=== PATIENT | female | born 1990 | race Two or more races ===

== ENCOUNTER 2017-04-06 08:23 | Day surgery (SDC) | payer SELFPAY | END 2017-04-06 10:00 | disposition home or self-care (01) | LOC: SDC 08:25 → ACINP 08:25 | PROVIDERS: Family Provider Family Medicine; PCP Family Medicine; Visit Provider Anesthesiology | PROC: 3E0R3GC Introduction of Other Therapeutic Substance into Spinal Canal, Percutaneous Approach (ICD-10-PCS; CPT 62273; principal; 2017-04-06 08:30) | DX: O89.4 Spinal and epidural anesthesia-induced headache during the puerperium (principal) | CPT/HCPCS: 62273; J7120 ==

== ENCOUNTER 2019-02-28 17:22 | Observation (INO) | payer SELFPAY ==
[2019-02-28] VITALS (9 sets, daily range): BP systolic 111–116; BP diastolic 64–74; PULSE 61–88; RESP 15–16; TEMP 36.2–36.9; O2SAT 95–99; BMI 22.2
[2019-02-28] MEDS: Lactated Ringers 1,000 ML 100 ML IV ×2 (14:00→16:00)
[2019-02-28 14:12] LABS: Hematocrit 41.4 % (37-47); Hemoglobin 13.7 g/dL (12.0-15.0); Mean Corp Hgb Conc 33.1 g/dL (32-36); Mean Corpuscular Hgb 30.4 pg (27.0-32.0); Mean Corpuscular Volume 91.8 fL (81-99); Platelet Count 230 K/mm3 (150-450); RBC Distribution Width CV 12.7 % (11.6-14.6); Red Blood Count 4.51 M/mm3 (4.2-5.4); White Blood Count 4.5 K/mm3 (4.4-11.0)
[2019-02-28] MEDS: Bupiv/Epi 0.25% 30 ML Vial (17:00)
[2019-02-28] MEDS: Ketorolac 30 MG/ML Syringe IV (18:24)
[2019-02-28] MEDS: MethylPREDNISolone 125 MG/2 ML Vial IV (19:09)
[2019-02-28] MEDS: Dextrose 5%-Lactated Ringers 1,000 ML 100 ML IV (19:09)
[2019-03-01] MEDS: MethylPREDNISolone 125 MG/2 ML Vial IV ×3 (00:34→12:31)
[2019-03-01] MEDS: Ketorolac 30 MG/ML Syringe IV ×3 (00:35→12:31)
[2019-03-01 02:20] VITALS: BP 120/84; PULSE 80; RESP 16; TEMP 36.4; O2SAT 98
[2019-03-01] MEDS: Dextrose 5%-Lactated Ringers 1,000 ML 100 ML IV (05:27)
[2019-03-01] MEDS: 0.9% Saline Lock 10 ML Syringe IV ×2 (05:27→12:31)
[2019-03-01 08:21] VITALS: BP 108/70; PULSE 60; RESP 18; TEMP 37.2; O2SAT 97
--- NOTE | 2019-03-01 12:33 | PCM.OPRPT ---
Problem List (1) Fracture, jaw, angle, open Status: Acute Qualifiers: Encounter type: initial encounter Laterality: right Qualified Code(s): S02.651B - Fracture of angle of right mandible, initial encounter for open fracture Report of Operation Date of Procedure: 02/28/19 Pre-Operative Diagnosis: Fractured Right Angle Mandible Post-Operative Diagnosis: Same Surgery/Procedure Performed:: ORIF right mandibular angle fracture Description of Surgical Findings:: Displaced right mandibular angle fracture in site of recently removed tooth 32 Type of Anesthesia:: General Special Medications: none Specimen's removed: None Drains: none Estimated Blood Loss (mL): minimal Fluids Replaced: 1000cc lactated Description of Procedure: Patient taken to OR after signed consent. Placed on operating table in the supine position. IV general anesthesia administered and naso tracheal intubation done. Prepped in sterile manner. The oral cavity was examined and a mobile right angle fracture was noted. Definite malocclusion noted. Throat pack placed. Victor Manuel arch bars fastened to the dentition with 26 ga wire. The patient was placed into IMF with wire loops. Lidocaine/marcaine administered to the right angle via mandibular block injections. Full thickness mucoperiosteal flaps elevated using the previous incisions from her dentist who recently removed the impacted tooth 32. The fracture was displaced and mobile. Granulation tissue was removed. The proximal and distal segments approximated and using a 4 hole fracture plate was placed to stabilize the fracture. The surgical site irrigated and sutured. The oral cavity suctioned after releasing the IMF. The patient was awakened and extubated and taken to PACU in stable condition. All sponge and needle counts correct. - Complications none
--- NOTE | 2019-03-01 13:05 | PCM.PN.BLA ---
Progress Note Patient seen resting in room. Very little pain. Incisions intact. Discharge care described and she will f/u to my office in 3 days.
[2019-03-01 14:00] VITALS: BP 100/52; PULSE 63; RESP 18; TEMP 37.7; O2SAT 97
[2019-03-01 14:30] VITALS: BP 100/52; PULSE 63; RESP 18; TEMP 37.7; O2SAT 97
== END 2019-03-01 14:30 | disposition home or self-care (01) ==
LOC: MS3 03-01 11:57
PROVIDERS: Admitting Provider Dentist Oral and Maxillofacial Surgery; Family Provider Family Medicine; PCP Family Medicine; Referring Provider Dentist Oral and Maxillofacial Surgery; Visit Provider Dentist Oral and Maxillofacial Surgery
PROC: (CPT 21470; principal; 2019-02-28 14:45)
DX: S02.651B Fracture of angle of right mandible, initial encounter for open fracture (principal); Y83.8 Other surgical procedures as the cause of abnormal reaction of the patient, or of later complication, without mention of misadventure at the time of the procedure; Y82.8 Other medical devices associated with adverse incidents; Y92.9 Unspecified place or not applicable
CPT/HCPCS: 21470; 85027; 96365; 96366; 99218; C1713; J7120; A4216; G0378; J2405